=== PATIENT | female | born 1940 | race Caucasian/White ===

== ENCOUNTER 2020-08-08 15:51 | Emergency (ER) | payer OTHER ==
[~2020-08-08] VITALS: Ht 170.2 cm; Wt 48.1 kg
[2020-08-08 17:39] LABS: HEMATOCRIT 33.1 % (37.0-47.0); HEMOGLOBIN 11.1 gm/dL (12.0-15.0); MCH 31.4 pg (26.0-34.0); MCHC 33.6 g/dL (28.0-37.0); MCV 93.5 fL (80.0-100.0); RBC 3.54 mil/uL (4.20-5.00); RDW 13.9 % (10.5-14.5); WBC 6.4 thou/uL (4.0-11.0)
[2020-08-08 17:45] LABS: CREATININE 0.8 mg/dL (0.6-1.0); POTASSIUM 3.5 mmol/L (3.5-5.1)
[2020-08-08 17:52] LABS: ALBUMIN 3.2 g/dL (3.4-5.0); TOTAL BILIRUBIN 0.4 mg/dL (0.2-1.0); TOTAL PROTEIN 5.6 g/dL (6.4-8.2)
[2020-08-08] MEDS ORDERED: TYLENOL325 M1 PO (18:22)
[2020-08-08] MEDS ORDERED: CALCIUM CARBON500 MG PO (18:22)
[2020-08-08] MEDS ORDERED: DEPAKOTE125 MG PO (18:23)
[2020-08-08] MEDS ORDERED: DULCOLAX STOOL100 M1 PO (18:23)
[2020-08-08] MEDS ORDERED: MELOXICAM15 MG PO (18:24)
[2020-08-08] MEDS ORDERED: FLUOXETINE HCL40 MG PO (18:24)
[2020-08-08] MEDS ORDERED: LORAZEPAM 0.50.5 MG PO (18:24)
[2020-08-08] MEDS ORDERED: OMEPRAZOLE20 M2 PO (18:25)
[2020-08-08] MEDS ORDERED: PRAVASTATIN SOD40 MG PO (18:25)
[2020-08-08] MEDS ORDERED: SUPER THERAVIT1 EACH PO (18:25)
[2020-08-08] MEDS ORDERED: RESTASIS1 EACH OPHTHALMIC (18:26)
[2020-08-08 19:03] LABS: URINE BILIRUBIN NEGATIVE (Negative); URINE BLOOD NEGATIVE (Negative); URINE CLARITY CLEAR; URINE COLOR YELLOW; URINE GLUCOSE-RANDOM* NEGATIVE (Negative); URINE KETONES 2+ (Negative); URINE LEUKOCYTES-REFLEX NEGATIVE (Negative); URINE NITRITE-REFLEX NEGATIVE (Negative); URINE PROTEIN (DIPSTICK) NEGATIVE (Negative)
[2020-08-08 19:10] LABS: AMP/METHAMP Negative (Negative); BARBITURATES Negative (Negative); BENZODIAZEPINES Negative (Negative); COCAINE Negative (Negative); METHADONE Negative (Negative); OPIATES Negative (Negative); PCP Negative (Negative)
[2020-08-08 19:40] VITALS: BP 141/54
== END 2020-08-08 19:45 ==
LOC: ER 15:51
PROVIDERS: Nurse Practitioner Family
DX: R45.851 Suicidal ideations (principal); Z20.822 Contact with and (suspected) exposure to COVID-19; F03.90 Unspecified dementia, unspecified severity, without behavioral disturbance, psychotic disturbance, mood disturbance, and anxiety; Z79.899 Other long term (current) drug therapy; Z88.5 Allergy status to narcotic agent

== ENCOUNTER 2020-08-08 17:50 | Inpatient (IN) | payer OTHER ==
[~2020-08-08] VITALS: Ht 165.1 cm; Wt 40.0 kg
[2020-08-08] MEDS ORDERED: CALCIUM CARBON500 MG PO (18:22)
[2020-08-08] MEDS ORDERED: TYLENOL325 M1 PO (18:22)
[2020-08-08] MEDS ORDERED: DULCOLAX STOOL100 M1 PO (18:23)
[2020-08-08] MEDS ORDERED: DEPAKOTE125 MG PO (18:23)
[2020-08-08] MEDS ORDERED: MELOXICAM15 MG PO (18:24)
[2020-08-08] MEDS ORDERED: FLUOXETINE HCL40 MG PO (18:24)
[2020-08-08] MEDS ORDERED: LORAZEPAM 0.50.5 MG PO (18:24)
[2020-08-08] MEDS ORDERED: PRAVASTATIN SOD40 MG PO (18:25)
[2020-08-08] MEDS ORDERED: OMEPRAZOLE20 M2 PO (18:25)
[2020-08-08] MEDS ORDERED: SUPER THERAVIT1 EACH PO (18:25)
[2020-08-08] MEDS ORDERED: RESTASIS1 EACH OPHTHALMIC (18:26)
[2020-08-08 19:55] VITALS: BP 141/54
--- NOTE | 2020-08-09 01:56 | NUR ---
ADMISSION NOTE: REPORT OBTAINED FROM JODI CASAREZ IN ED. PT ARRIVED TO UNIT AT 1954 VIA WHEEL CHAIR ACCOMPANIED BY BOAT CAMP OPERATOR. THIS RN GREETED PT AND ESCORTED HER TO HER ROOM. SUZY APPEARS WELL GROOMED AND IS DRESSED APPROPRIATE. PT PRESENTS WITH A ANXIOUS AFFECT AND HER THOUGHTS ARE DISORGANIZED. SHE IS ALERT TO PERSON AND PLACE ONLY. PT VERBALIZED THAT SHE IS COLD AND BLANKETS WERE PROVIDED. PHYSICAL ASSESSMENT COMPLETED BY CHARGE NURSE WITH THE FOLOWING FINDINGS VITAL SIGNS; BP 141/54, P-59, R-16, O2-99%, AND TEMP 98.1 ORAL, LUNG SOUNDS CLEAR, HEART S1 S2 REGULAR, ABDOMEN SOFT NON TENDER WITH ACTIVE BOWEL SOUNDS. NO WOUNDS NOTED. PT ORIENTED TO ROOM AND UNIT. EDUCATION PROVIDED ON FALL PREACAUTIONS AND UNITE RULES. PT DENIED ANY THOUGHTS OF SELF HARM OR HARMING OTHERS. SHE STATED "I DO NOT WNAT TO AND I NEVER WOULD SAY ANYTHING LIKE THAT". PER REFFERING FACILITY, SUZY, STATED THAT SHE WANTED TO LAY DOWN AND TRAFFIC AND . PATIENT HAS LEFT ARM RESTRICTION. SHE HAS A HISTORY OF BREAST CANCER AND A RECENT FEMUR FRACTURE IN MARCH OF 2020. PATIENT HAS DPOA SILAS LILLY. DPOA CONTACTED AND CONSENTS WERE OBTAINED FOR TREATMENT. SPOKE WITH PROPELLER ENGINEER DOCTOR AND RECEIVED ADMIT ORDERS. H&P CONSULT ORDERED AND COMPLETED.
[2020-08-09 05:48] LABS: CHOLESTEROL 175 mg/dL (<200); HDL CHOLESTEROL 82 mg/dL (>40); LDL CHOLESTEROL 76 mg/dL (<100); TC:HDL 2.1 Ratio (Not establshd); TRIGLYCERIDE 89 mg/dL (<150); VLDL 18 mg/dL (<40)
[2020-08-09 05:49] LABS: SERUM ASSESSMENT Clear
[2020-08-09 09:41] VITALS: BP 124/62
[2020-08-09 13:13] VITALS: BP 124/62
[2020-08-09 18:49] VITALS: BP 128/59
--- NOTE | 2020-08-09 19:19 | NUR ---
Assumed pt care at 0700. pt is oriented to self. Took meds whole, no difficulty noted. Assessments completed, vss. No sign of acute distress noted upon assessments. pt was very anxious at AM, but redirectable. Denies si/hi. denies pain. ambulates with a walker. pt best friend visited pt this shift. Dedra KEYES CALLED TO GET UPDATE ON PT. pt request to speak with Dedra every 10 minutes. when pt is redirected, pt get irritable. At [address] pt was extremely [address] Rosenbaum notified. order of 1MG Ativan PO was obtained AND administered at 1828. At this time pt is sitting in the day room. will continue to monitor.
[2020-08-09 23:03] VITALS: BP 128/59
[2020-08-10 03:06] LABS: GLYCOHEMOGLOBIN (HGB A1C) 5.5 % (4.8-5.6)
--- NOTE | 2020-08-10 03:57 | NUR ---
Assumed care on 08/09/20 @ 19:15, seated in the day room in a lokesh chair. Cooperated with assessment, however stands up repeatedly and has to be redirected to sit for the assessment. Denies depression, but then followed up the denial with the words darkness, and feeling. Anxiety, says, no not for quite a while. Denies SI/HI. HRRR, Lungs sounds shallow, ABD N x4q. Reports a BM today. A&Ox1 to self only. Very shaky and unstable when standing. Kenney score of 55. Retired to bed @ HS and got up at about 0300 to toilet via the BSC. Will continue to monitor as per unit protocol for safety and comfort.
[2020-08-10 08:57] VITALS: BP 153/82
--- NOTE | 2020-08-10 15:53 | NUR ---
Assumed pt care at 0700. pt is oriented to self. Assessments completed, vss. Pt denies si/hi, denies pain. Took meds whole, no difficulty noted. AMbulates with a walker. calm and co-operative with care. Dedra visited pt. pt was anxious but redirectable. Med administered as ordered. pt is shaky when when she stands up. pt constantly wanders the unit. At this time pt is in the day room relaxing. Will continue to monitor.
[2020-08-10 19:02] VITALS: BP 95/70
[2020-08-10 20:00] VITALS: BP 95/70
--- NOTE | 2020-08-10 23:00 | NUR ---
PATIENT HAS BEEN IN BED SLEEPING SINCE I CAME ON SHIFT AT 1900. SHE DID AWAKE IN A DROWSY STATE WHEN I CAME IN TO ASSESS HER AND GIVE HER HER HS MEDS. SHE TOOK HER HS MEDS WHOLE WITH WATER. PATIENT DENIES PAIN, NO SI/HI. NO SIGN OF AVH. PATIENT IS A/0X1. VSS. PHYSICAL ASSESSMENT WNL. PATIENT WENT BACK TO SLEEP. HER HANDS WERE SHAKING WHEN I GAVE HER HER MEDS AND SHE EXPLAINED THAT SHE WAS COLD. NO FEVER. ADDITIONAL BLANKETS WERE PLACED ON HER FOR WARMTH. BED IN LOW POSITION AND BED ALARM IS ON. BATHROOM LIGHT ON AND ROUTINE ROUNDS TO ASSESS SAFETY AND STATUS OF PATIENT. CONTINUING TO MONITOR.
[2020-08-11 09:44] VITALS: BP 123/57
[2020-08-11 09:45] VITALS: BP 123/57
--- NOTE | 2020-08-11 10:07 | H ---
[facility] [place] [address] HISTORY AND PHYSICAL Name: SUZY LAWRENCE Room #: 519A-A ADM IN M.R.#: [id number] Admission: 08/08/20 Attend Phys: Carlos Rosenbaum DO Discharge: Date of : 40 Report #: [id number] THIS REPORT FOR: cc: Jean Campos MD, Ralph R. MD Kerstein,Carlos Stack DO ~ DOC #: [id number] CARLOS Rosenbaum DO DATE OF SERVICE: 08/09/2020 ATTENDING PSYCHIATRIST: Carlos Rosenbaum DO ANALYSIS OR RESEARCH SAFETY INSPECTOR: Hussain Bolivar NP, and Varghese Pino M.D. and his hospitalist team. SOURCES OF INFORMATION: I believe her name is Dedra Radford, who is the patient's DPOA, but is not listed on the contact information in [facility], chart review, my own interview with the patient in the ER, and on the [facility]. REASON FOR ADMISSION: Suicidal gesture. HISTORY OF PRESENT ILLNESS: This is an 80-year-old female sent from [facility] for concerns of suicidal ideation and behavior today. The patient's DPOA arrived during her ER visit and filled in some of the pieces. The patient has been placed there about a year ago. She has an Alzheimer dementia. The report from the ED was that there has been a lot of time she sat on the floor, was crying and told staff she wanted to kill herself and run out into traffic and get hit by a car. In the Emergency Department, she admitted to me that she said this, but would not actually do it. She was given some Ativan that improved things prior to arrival in the ER. She denied recent depression or sadness, so I do not think this is true, frpm talking to [facility]. She thought it was 1990. Denied headache, visual changes, chest pain, shortness of breath, abdominal pain, nausea, vomiting, diarrhea, constipation, or urinary symptoms. MEDICATIONS AT NURSING FACILITY: calcium carbonate 1 tab p.o. b.i.d., Depakote sodium 500 mg p.o. b.i.d., docusate 100 mg p.o. b.i.d., fluoxetine 20 mg p.o. at bedtime, lorazepam as noted is 0.5 mg p.o. b.i.d., I thought it was actually 0.25 mg p.o. b.i.d., meloxicam daily, multivitamin, omeprazole, pravastatin, cyclosporine ophthalmic drops. ALLERGIES: CODEINE. REVIEW OF SYSTEMS: Due to her dementia, could not get reliable review of systems. Weight 48.08 kilos, BMI low at 16.2. [address] [address] HISTORY AND PHYSICAL Name: CAMILA LAWRENCEWinnie Dalton Room #: 519A-A ADM IN M.R.#: [id number] Admission: 08/08/20 Attend Phys: Carlos Rosenbaum, DO Discharge: Date of : 40 Report #: [id number] LABORATORY DATA: From the ER on the CBC, H and H 11.1/33.1, white count 6.4, platelet count 213,000. Electrolytes: Sodium 140, potassium 3.5, chloride 103, bicarbonate 29, anion gap 8, BUN 16, creatinine 0.8, estimated GFR 69, glucose 99, calcium 9.0, total bilirubin 0.4, AST 18, ALT 15, alkaline phosphatase 58, total protein 5.6, albumin 3.2. Triglycerides 89. Cholesterol 175, LDL 76, HDL 82. TSH 1.251. Urinalysis showed 2+ ketones, 4.0 urobilinogen, otherwise normal. Urine drug screen was negative including for marijuana. COVID-19 Thao test was negative. PHYSICAL EXAMINATION: VITAL SIGNS: Today, temperature 36.9, pulse 60, respirations 18, BP 124/62. GENERAL: The patient is using a walker minimally to ambulate, unkempt, slightly kyphotic station. MENTAL STATUS EXAMINATION: This is a well-developed, thin, undernourished-appearing female. Attention limited. Concentration limited. Speech, normal rate. Thought process, linear and hypervigilant. Thought content, focused on being discharged, not beingon the unit. mood/affect- restricted, depressed, irritable, congruent Some psychomotor agitation, psychomotor retardation. Denied SI or HI. Denies auditory, visual, or tactile hallucinations. Memory not formally tested. Insight limited. Judgment limited. Fund of knowledge, greater than average. MEDS IN THE HOSPITAL: Atorvastatin 20 mg p.o. at bedtime, multivitamin daily, meloxicam 15 mg p.o. daily, lorazepam 0.25 mg twice a day, docusate 100 mg p.o. b.i.d., Depakote 500 mg p.o. b.i.d., calcium carbonate 1000 mg p.o. daily, Protonix 40 mg p.o. daily. Otherwise, house PRNs. FORMULATION: An 80-year-old female sent out for suicidal gesture, suicidal ideation, increasing difficulty the last few weeks at her memory care facility. DIAGNOSES: At this time, major neurocognitive disorder, likely due to Alzheimer's disease with behavioral disturbance, unspecified depression. Additional morbidities include arthritis, hyperlipidemia. PLAN: The patient is admitted to geriatric psychiatry. Evaluate, stabilize, and obtain collateral. ____ DPOA today at the moment. She has been quite anxious today, and I think she is going to need an antipsychotic, likely will start olanzapine. STRENGTHS: Insured, has placement, support. WEAKNESSES: Advancing age, neurodegenerative disease. [facility] [address] [place] [address] HISTORY AND PHYSICAL Name: SUZY LAWRENCE Room #: 519A-A ADM IN [facility]#: [id number] Admission: 08/08/20 Attend Phys: Carlos Rosenbaum DO Discharge: Date of : 40 Report #: [id number] DO JUMANA Parsons/BRIANNA/SHERI <ELECTRONICALLY SIGNED> By: Carlos Rosenbaum DO 08/11/20 1007 [id number] Carlos Rosenbaum DO /nt
--- NOTE | 2020-08-11 10:57 | NUR ---
1050 RESUMMED CARE FROM OVERNNIGHT SHIFT THIS AM, PATIENT IN DAY ROOM WALKING AROUND ROOM AND HALLS. PATIENT ALERT ORIENTED TO SELF ONLY PATIENT HAS CONFUSION AND IS FORGETFUL. PATIENT ATE BREAKFAST TOOK MEDICATION WITHOUT INCIDENCE. PATIENT DENIES SI/HI/AH/VH AT PRESENT PATIENTS ABDOMEN SOFT BOWEL SOUNDS PRESENT. PATIENTS LUNGS CLEAR PATIENT DID SIT AN PARTICIPATED IN GROUP. PATIENT OFTEN COMES UP TO NURSES STATION ASKING ABOUT CALLING HER FRIENDS. PATIENT HAS NOT DISPLAYED ANY BEHAVIORS SHE IS JUST CONFUSED WILL CONTINUE TO MONITOR FOR SAFETY AND BEHAVIORS.
--- NOTE | 2020-08-11 15:25 | NUR ---
This telegraphic typewriter installer assisted TIRE CARE MANAGER who was assisting Nimo in preparing to take a shower. Nimo had become resistive to the idea of taking a shower and was refusing altogether. This pt had a visitor during visitation who requested that Nimo be bathed and dressed in a new set of clothes as she had not changed since her admission 3 days ago. Nimo stated, "I will not do it." despite staff explaining to her that this was at the request of her friend Tati and her DPOA Dedra. Professor Of German called Dedra who spoke to Nimo, explaining to her what was going on. Nimo continued to decline showering. WALI Colmenares is planning to visit pt tomorrow during AM visiting hours and asked that pt be offered a shower then to see if it will help with pt comfort level.
[2020-08-11 19:46] VITALS: BP 118/60
--- NOTE | 2020-08-12 01:57 | NUR ---
Pt assessment performed by this Nurse at approx 2100 hrs. Upon assessment patient was in bed. Patient alert/sleepy. Pt oriented to self only at the time of assessment.She was unable to state her birthdate, location or president. Patient had good eye contact and was very pleasant and cooperative. Patient compliant with unclaimed property manager and takes her meds whole with water. She did ask what each pill was for and this Nurse educated pt regarding medications. Upon physical assessment lungs are clear, no sob but she did have irregular heart sounds approx every 3rd -4th beat. Pt denied any pain, depression, anxiety, SI/HI. Patient was smiling and friendly throughout assessment. She stated she had a BM yesterday 08/10/20. Denies any urinary or bowel issues. She does wear a brief and has a bedside commode in her room. At approx 0145 this am (08/12/20) pt got out of bed and was trying to get to her bathroom without using her walker or bsc. This Nurse and tech redirected pt to bsc where she sat for quite awhile but was unable to urinate. She stated that she will awake with the urgency to urinate but when she gets on the toilet she is unable to void most of the time. Patient got back in bed and stated she might try again later. Will continue to monitor and follow plan of care. Q 12 min safety checks per protocol.
[2020-08-12 09:28] VITALS: BP 115/45
--- NOTE | 2020-08-12 17:42 | NUR ---
SALVADOR was able to speak with Pt's DPOA, Dedra Muniz [phone], to inform that Pt showered today. Dedra was happy to know this. Dedra also reported that the Pt's mood was improving. Also Pt was smiling and conversational during Dedra's visit on the unit today. SALVADOR will continue to follow
--- NOTE | 2020-08-12 19:24 | NUR ---
0700 ASSUMED CARE OF PATIENT, PATIENT IN BED ASLEEP AT THAT TIME. ALARM TO BED SOUNDS, TOOL AND DIE DESIGNER TO ROOM WITH PATIENT HEADED TO BR WITHOUT WALKER. PATIENT EDUCATED ON USE OF WALKER TO PREVENT FALLS. PATIENT TO BE VOIDED AND MED BM. MEDICATION TAKEN WHOLE WITHOUT DIFFICULTY. PRESENT IN AM GROUP. BLADDER SCAN COMPLETED AT 10AM WITH 147ML NOTED. NO C/O PAIN AMB SOFT AND FLAT. 1750 PATIENT CONFUSED STATING "I WAS SUPOSE TO GO HOME TODAY". PATIENT UPSET. TOOL AND DIE DESIGNER AMB TO ROOM WITH PATIENT, PATIENT SITS ON SIDE OF BED GRABBING SIDES OF HEAD RAISING HER VOICE STATING "I AM SUPOSE TO GO TODAY". PATIENT LAYS IN BED TO REST.
[2020-08-12 20:00] VITALS: BP 121/47
--- NOTE | 2020-08-13 02:32 | NUR ---
Initial assessment performed by this Nurse at approx 2030 hrs on 08/12/20. Patient was observed sleeping in her bed. This Nurse woke patient up for physical assessment. No changes noted from previous shift. Patient drowsy, alert and oriented to self. Patient smiling and denied any pain, depression, anxiety, SI/HI, hallucinations. Patient continues to get out of bed quickly and attempts to ambulate toward her bathroom without her walker. Each time patient escorted to BSC with her walker by staff. Patient continually reminded to use walker and BSC. Patient will state, " I'm so sorry." Staff has explained to patient no need to apologize and that we are just trying to keep her safe. Patient did not want hs snack. She did void small amt of urine x 1 this shift with BSC. Patient appears weak when standing and does not have a steady gait. Will continue to monitor and follow plan of care. Q 12 min safety checks per protocol.
[2020-08-13 08:39] VITALS: BP 131/63
--- NOTE | 2020-08-13 17:46 | NUR ---
0700 ASSUMED CARE OF PATIENT, PATIENT IN BED AT THAT TIME. PATIENT IN WC AND OUT TO DAYROOM FOR BREAKFAST. AWAKE AND ALERT, FEEDS SELF. MEDICATION TAKEN WHOLE WITHOUT DIFFICULTY. PRESENT IN GROUP THIS AM. PATIENT TRANSFERED TO [facility], RESTING WITH EYES CLOSED. VISITOR HERE, PATIENT SLEEPING AT THAT TIME. AFTER LUNCH PATIENT ASKS AUTOMATIC WASHER MECHANIC ABOUT BEING DC'D TOMORROW. PATIENT UPSET THAT TOMORROW IS SATURDAY AND NOT GOING HOME. PATIENT PLACES HEAD IN LAP AND STARTS SHAKING WITH ANGER. PATIENT DENIES ANXIETY STATES "I AM JUST UPSET AND WANT TO GO TO MY HOME". AMB WITH WALKER SLOW AND STEADY. DENIES PAIN, LS CLEAR, BS ACTIVE. DENIES SI/HI. PATIENT ON PHONE WITH FRIEND AT THIS TIME.
[2020-08-13 21:00] VITALS: BP 135/79
--- NOTE | 2020-08-14 05:51 | NUR ---
ASSUMED CARE OF PATIENT AT APPROX 1915 HRS ON 08/13/20. PATIENT ALERT/DROWSY. PATIENT DENIES ANY PAIN, DEPRESSION, SI/HI, ANXIETY, HALLUCINATIONS. SHE DOES STATE SHE IS SAD BECAUSE SHE WANTS TO GO HOME AND SHE WANTS HER FRIEND SILAS TO COME AND GET HER. PT DID HAVE HER PM SNACK AND DRANK 8OZ OF WATER WITH SNACK. SHE AMBULATES WITH WALKER AND HAS SLIGHTLY UNSTEADY GAIT. SHE DOES NEED ASSIST WITH TOILETING. PT'S PANTS AND UNDERWEAR WASHED THIS SHIFT AND PLACED BACK IN HER ROOM. PATIENT HAS HAD NO COMPLAINTS SINCE RETIRING TO BED. WILL CONTINUE TO MONITOR AND FOLLOW PLAN OF CARE. Q 12 MIN SAFETY CHECKS PER PROTOCOL.
[2020-08-14 08:54] VITALS: BP 144/61
--- NOTE | 2020-08-14 13:00 | NUR ---
Updates faxed to [facility]
--- NOTE | 2020-08-14 15:10 | NUR ---
0700 ASSUMED CARE OF PATIENT, PATIENT ASLEEP IN BED AT THAT TIME. PATIENT DOES NOT WANT TO GET OUT OF BED FOR BREAKFAST STATES "I WANT TO SLEEP, IM TIRED". 0945 PATIENT OUT OF BED AMB WITH WALKER. MEDICATION TAKEN WHOLE WITHOUT DIFFICULTY. PATIENT FEEDS SELF EATING WELL. DR OTOOLE HERE TO SEE PATIENT ORDERS RECIEVED. NO C/O PAIN, DENIES SI/HI. ASKING WHEN SHE WILL GO HOME. CALM AND COOPERATIVE. BACK TO BED TO REST
[2020-08-14 19:22] VITALS: BP 122/71
[2020-08-14 20:20] VITALS: BP 122/71
--- NOTE | 2020-08-15 00:18 | NUR ---
PATIENT WAS UP WITH WALKER THIS EVENING. SHE SAT IN DINING ROOM AND HAD HS SNACK BEFORE GOING BACK TO BED. SHE HAS BEEN PLEASANT AND COOPERATIVE. SHE APPEARS SAD BUT NO EXIT SEEKING OR REQUESTS TO LEAVE. SHE IS WEAK AND UNSTEADY GAIT WITH WALKER AT TIMES. PATIENT IS A/0X1. SHE IS CONTINENT. PATIENT DENIES PAIN. NO INDICATIONS OF SI/HI/AVH. PATIENT SAT UP IN BED AND TOOK HER HS MEDS WHOLE WITH WATER. SHE HAS BEEN UP X 1 SO FAR TONIGHT THINKING IT WAS TIME TO GET UP AND GET DRESSED. REORIENTED HER ON THE TIME AND ASSISTED HER TO THE [facility] WHERE SHE DID VOID CLEAR YELLOW URINE. PATIENT BACK IN BED. BED LOCKED AND IN LOW POSITION AND BED ALARM IS ON. ROUTINE ROUNDS TO ASSESS SAFETY AND STATUS OF PATIENT.
[2020-08-15 08:49] VITALS: BP 133/64
[2020-08-15 09:44] VITALS: BP 133/64
--- NOTE | 2020-08-15 13:01 | NUR ---
1235 RESUMMED CARE FROM OVERNIGHT SHIFT THIS AM, PATIENT IN ROOM LYING QUIET. PATIENT CAME TO DAY ROOM ATE BREAKFAST TOOK MEDICATION WITHOUT INCIDENCE. PATIENT ALERT ORIENTED TO SELF ONLY PATIENT PATIENT UNABLE TO TELL ME ABOUT SI/HI/AH/VH AT PRESENT. PATIENTS ABDOMEN SOFT BOWEL SOUNDS PRESENT PATIENTS LUNGS CLEAR. PATIENT ALERT TO SELF ONLY PATIENTS AFFECT FLAT PATIENT HAS UNSTEADY GAIT AT TIMES. I PUT PATIENT IN WC FOR SAFETY PATIENT ASKED IF SHE GO BACK TO BED TO REST. WILL CONTINUE TO MONITOR PATIENT FOR SAFETY AND BEHAVIORS.
--- NOTE | 2020-08-15 14:41 | NUR ---
RT progress Note- Nimo has been present in many recreation therapy groups since her admission, however her active engagement is limited d/t attention and cognition. Nimo often believes that she needs to be somewhere and will not remain engaged. Othertimes she is napping. When awake for conversation, Nimo brightens when speaking about her friends. She also enjoyed visiting with a therapy dog during this review period. RECEIVING CHECKER will continue to encourage participation.
[2020-08-15 19:11] VITALS: BP 91/63
[2020-08-15 21:00] VITALS: BP 91/63
--- NOTE | 2020-08-16 00:23 | NUR ---
[facility] WAS RESUMED AT 1900. SHE IS CALM AND ALERT.ABLE TO VERBALIZE SOME NEEDS. SHE IS INCONTINET OF BOWEL AND BLADDER. ASSISTED WITH DESTIN- CARE. SHE DENIES ANY DISCOMFORT, AVH/SI/ HI. SHE IS RESTING IN BED NOW. SHE IS MONIOTRED Q12 MINS. SHE TOOK HER MEDS WHOLE AND DRANK WATER AND ATE SOME SNACKS.BED IS LOW AND LOCKED. LUNGS ARE CLEAR ON AUSCULTAION, ABODMEN IS FLAT , NONE TENDER. SHE TOOK HER MEDS WHOLE.CONTINUE CARE AND MONITOR.
[2020-08-16 09:13] VITALS: BP 140/56
--- NOTE | 2020-08-16 10:47 | NUR ---
Received awake on the dining meléndez. On room air. Vital signs stable. On regular diet- tolerating well; no nausea, no vomiting and no abdomnal pain noted; assisted in eating and drinking; encouraged in taking supplements. Due medications given as prescribed, able to swallow meds w/o difficulty. Continent of bowel and bladder, checked frequently and offered toileting as well. No IV noted. Falls bundle in place, using walker and can be unsteady at times. No signs and complains od chest pain, crushing sensation and heaviness. No complains and signs of pain made during assessment. Assisted in ADLs. No verbalizations of HI/SI; no verbal, auditory and tactile hallucinations noted. Pt tearful this AM, re-assured and re-oriented. With L limb alert- hx of breast Ca. To continue monitoring patient. Pt seen and examined by OT- patient reporting to have diarrhea- Dr Pino informed, a/w orders.
[2020-08-16 19:34] VITALS: BP 94/52
--- NOTE | 2020-08-16 20:11 | NUR ---
Upon assessment at 1915 hrs patient observed in day room in [facility] reclined and tearful. Patient trying to get out of chair. Patient verbalizing that she wanted to go home and crying. This Nurse removed patient from the day room. She was able to ambulate with walker to her room and place herself on the toilet. Patient toileted herself without assist, pulled up her brief and pants then ambulated to her bed where she chose to lay down. Patient continues to cry stating she just wants to go home. Patient consoled and encouraged to relax in her room for a bit. Patient was asleep within 5 minutes of laying in her bed. Physical assessment was unremarkable. This Nurse did not ask patient to rate depression, anxiety, etc. She was too emotional at the time. Will continue to monitor and follow plan of care. Will administer medications after patient has had some time to calm down and rest. Q 12 min safety checks per protocol.
--- NOTE | 2020-08-16 22:44 | NUR ---
PT SLEEPING AT THIS TIME. WILL CONTINUE TO MONITOR
--- NOTE | 2020-08-17 06:33 | NUR ---
Patient slept through the night and is still sleeping at this time. A.M. med will be given by oncoming RN when patient awakes. No issues through the night.
[2020-08-17 09:02] VITALS: BP 121/50
--- NOTE | 2020-08-17 12:45 | NUR ---
PATIENT CARE ASSUMED AT 0700 - APPROACHED AND WAS IN BED ON ARRIVAL WHEN ROUNDING. PATIENT PLEASANT - ACKNOWLEDGED SAID SUBSTATION SUPERINTENDENT WITH A SMILE. PATIENT BECOMES TEARFUL PERIODICALLY. AMBULATES WITH WALKER - NEEDING TO BE REMINDED OFTEN DUE TO HER UNSTEADINESS. ALERT TO SELF. APPETITE FAIR - CONSUMING OVER 50% FOR BREAKFAST AND LUNCH. NO PAIN WHEN ASSESSED. COOPERATIVE WITH CARES AND REDIRECTION. NAPPED AFTER LUNCH. HEART RATE STRONG AND STEADY. LUNGS CLEAR ON AUSCULTATION. HAD BOWEL MOVEMENT YESTERDAY. COMPLIANT WITH MEDICATIONS - EASILY TAKEN WITH THIN LIQUIDS. WILL CONTINUE TO MONITOR PATIENT FOR SAFETY OR CONCERNS AND ADDRESS ACCORDINGLY.
[2020-08-17 19:58] VITALS: BP 107/57
--- NOTE | 2020-08-18 00:04 | NUR ---
UPON ASSESSMENT PT OBSERVED SITTING IN CHAIR IN DAY ROOM. SHE WAS ALERT/ORIENTED TO SELF. PT SMILED AT THIS NURSE BUT STATED SHE DID NOT REMEMBER ME FROM THE PREVIOUS NIGHT. PT IS OCCASSIONALLY SOCIAL WITH PEERS AND WATCHED SOME TV TONIGHT. SHE AMBULATED WITH WALKER TO HER ROOM AFTER HS SNACK. PT IS ABLE TO TOILET HERSELF BUT LEGS ARE A BIT WEAKER THIS EVENING THAN USUAL. DAY SHIFT STAFF STATED PT DID A LOT OF WALKING TODAY. PATIENT COMPLIANT WITH MEDS AND CARE THIS SHIFT. PT RETIRED TO HER BED AND WILL CONTINUE TO BE MONITORED. Q 12 SAFETY CHECKS PER PROTOCOL.
--- NOTE | 2020-08-18 05:47 | NUR ---
PT HAS TRIED TO GET OUT OF BED MULTIPLE TIMES THIS SHIFT. PT RESTLESS AND CONFUSED.
[2020-08-18 08:40] VITALS: BP 140/53
[2020-08-18 09:58] VITALS: BP 140/53
--- NOTE | 2020-08-18 13:01 | NUR ---
1255 RESUMMED CARE FROM OVERNIGHT SHIFT THIS AM, PATIENT IN DAY ROOM SITTING QUIETLY. PATIENT ALERT ORIENTED TO SELF ONLY PATIENT ATE BREAKFAST TOOK MEDICATION WITHOUT INCIDENCE. PATIENT DENIES SI/HI/AH/VH AT PRESENT PATIENT IS WALKING AROUND THE UNIT WITH A WALKER. PATIENT PARTICIPATES IN GROUPS QUIET CALM. WILL CONTINUE TO MONITOR PATIENT FOR SAFETY AND BEHAVIORS.
[2020-08-18 19:27] VITALS: BP 122/61
--- NOTE | 2020-08-19 05:13 | NUR ---
08-18-20 CARE TRANSFERRED 1900 OBSERVED PT WALKING WITH WALKER AND CARE STAFF ASSISTING. LATER PT AAOX1, VSS, RR EVEN AND NONLABORED ON RA. PT DENIES PAIN AND SI/HI. PT PRESENTS IRRITABLE, BUT REMAINED COOPERATIVE. DURING MEDICATION ADMIN PT BECOME AGITATED AND WANTING TO LEAVE, FOR HER BROTHER WAS [place] THE [place] AND SHE NEED TO PICKUP HIM UP, PT REORIENATED TO BEING AT THE HOSPITAL AND PT THEN STARTING HAVING FLIGHT OF IDEAS ABOUT NEEDING TO LEAVE, PT WAS REASSURED AND PT TOOK EVENING MEDICATION, LATER NOTED PT HAD CALMED, BUT WAS RESTLESS. LATER PT WAS ASSISTED TO BED, BUT PT BECAME AGITATED AND SWINING AT STAFF, AND PT AGITATATION INCREASED. 08-19-20 0045 Bradley ROCHE NP WAS CONSULTED AND ORDERS FOR GEODON 15MG IM WITH SECURITY TEAM RESTRIANT ORDERS RECEIVED, AND ORDERS ADMIN AT 0054 WITH SECURITY TEAM ASSISTANCE. 0115 PT PRESENTED CALM, AND 0145 PT WAS RESTING WITH EYES CLOSED. 0515 PT WAS ASSISTED BY EMAIL SPECIALIST STAFF, AND PT APPEARS TO BE RESTLESS AND EXIT SEEKING, STATING "I need to leave". ZERO S/S OF ACUTE DISTRESS, PT WILL CONTINUE TO BE MONITOR PER [facility] PROTOCOL.
[2020-08-19 09:46] VITALS: BP 139/65; BP 141/50
--- NOTE | 2020-08-19 11:42 | NUR ---
Alert and orientated to name only. Impulsive at times wanting to get out of gerichair and ambulate, gait slightly unsteady. Resistant to redirection this AM, better late AM after meds. Denies SI/HI. Confused speech, no speech/behavior suggestive of SI/HI. Breath sounds clear. Reg HR auscultated. Color pink with brisk capillary refill and palpable peripheral pulses. Brief dry. Active bowel sounds over soft, slightly rounded abdomen. Resistant to swallowing meds this AM, depakote and colace changed to liquid, rest of meds crushed and given with apple sauce. Took with verbal encouragement. Drank 100% of ensure when given in small amts. Sitting in day room without s/o distress.
[2020-08-19 19:44] VITALS: BP 152/61
[2020-08-20 03:16] VITALS: BP 152/61
--- NOTE | 2020-08-20 03:30 | NUR ---
08/19/20 assumed care from day shift nurse at 1900, pt is alert to self, confused, does not know where she is and continues to voice wanting to leave, impulsive, pt did eat a snack, Denies SI/HI/AH/VH but her speech is rambled, pt took her medications with yogurt, did not take the colace. Pt requires constant supervision because she attempts to get up without assistance. Will continue to monitor.
[2020-08-20 07:29] VITALS: BP 154/47
[2020-08-20 19:55] VITALS: BP 127/56
[2020-08-21 01:42] VITALS: BP 127/56
--- NOTE | 2020-08-21 02:17 | NUR ---
08/20/20- Assumed pt care from day shift nurse at 1900, Alert to self, in chair with close supervision by staff, did not sleep last night finally slept for one hour on 08/19/20 and still is not sleeping tonight. pt at baseline is pleasantly confused but now pt is easily agitated, remains impulsive which is baseline for her but she is typically redirectable but for the past two nights she has not been. Pt will notify staff when she need to use the bathroom, she has episodes of incontinence, pt took her medication with pudding but refused her colace. Sean ADAME/MARGIE/AH/VH, will continue to monitor throughout this shift
[2020-08-21 08:47] VITALS: BP 156/50
--- NOTE | 2020-08-21 11:31 | NUR ---
NOTED TO BE RESTLESS AND AGITATED ON INITIAL APPROACH THIS AM-SITTING IN RECLINER UPRIGHT IN DAYROOM TAKING CLOTHES OFF-HAD REMOVED T-SHIRT AND WAS ATTEMPTING TO PULL DOWN PANTS-BECAME COMBATIVEWITH BUSINESS INTELLIGENCE CONSULTANT WHO WAS ATTEMPTING TO PUT SHIRT BACK ON OR COVER HER WITH BLANKET-TAKEN TO BATHROOM TO SEE IF WAS RESTLESS D/T NEED TO VOID-INCREASED PHYSICALLY COMBATIVE BEHAVIOR DURING TOILETING REQUIRING 3 STAFF TO TRANSER TO TOILET-BRIEF DRY AND DID NOT VOID WHILE ON TOILET-NO BLADDER DISTENSION NOTED. ZYPREXA 5MGPO PRN GIVEN ALONG WITH AM MEDICATIONS. MEDS CRUSHED IN PUDDING D/T REFUSAL TO TAKE PO. CONVERSATION RAMBLING-INCOHERENT. DENIES C/O PAIN. LUNGS CLEAR-VS STABLE-WILL CONTINUE TO MONITOR
[2020-08-21 18:23] LABS: URINE BILIRUBIN NEGATIVE (Negative); URINE BLOOD 3+ (Negative); URINE CLARITY CLOUDY; URINE COLOR YELLOW; URINE GLUCOSE-RANDOM* NEGATIVE (Negative); URINE KETONES NEGATIVE (Negative); URINE NITRITE-REFLEX NEGATIVE (Negative); URINE PROTEIN (DIPSTICK) NEGATIVE (Negative)
[2020-08-21 18:28] LABS: URINE LEUKOCYTES-REFLEX 3+ (Negative)
[2020-08-21 18:34] LABS: CASTS None Seen /LPF (None Seen); SQUAMOUS None Seen /LPF (0-3); URINE WBC-REFLEX >25 Many /HPF (0-5)
[2020-08-21 18:35] LABS: CRYSTALS None Seen /LPF (None Seen); URINE RBC 3-10 Few /HPF (NONE SEEN)
[2020-08-21 19:09] VITALS: BP 122/61
[2020-08-21 20:20] VITALS: BP 122/61
--- NOTE | 2020-08-22 01:47 | NUR ---
PATIENT WAS SITTING IN RECLINER IN DAYROOM WHEN GIVEN HER HALDOL 4MG/ATIVAN 1MG IM AT 0053. MANUAL HOLD ORDER IN PLACE AND INJECTION WAS GIVEN WITH THIS NURSE AND ONE ADDITIONAL STAFF NURSE TO HELP HOLD ARMS STILL FOR INJECTION INTO LEFT ARM. PATIENT YELLED AND TRIED TO HIT NURSES AND WAS COMBATIVE. PATIENT IS SLEEPING IN RECLINER IN DINING ROOM WITH CHAIR ALARM ON AT THIS TIME. RESPIRATIONS EVEN AND UNLABORED. PATIENT POSITIONED COMFORTABLY. NURSE POSITIONED IN DINING ROOM TO WATCH OVER PATIENTS IN THE ROOM. CONTINUING TO MONITOR. FOR SAFETY.
--- NOTE | 2020-08-22 04:32 | NUR ---
PATIENT SLEEPING SOUNDLY IN BED. PATIENT MOVED TO BED FROM RECLINER IN DINING ROOM BED AROUND 0200.
[2020-08-22 08:40] VITALS: BP 116/57
--- NOTE | 2020-08-22 08:49 | NUR ---
SALVADOR faxed updated to [facility] on 08/21/20.
--- NOTE | 2020-08-22 13:00 | NUR ---
SALVADOR and Dr. Rosenbaum met with patient's DPOA Dedra Muniz to discuss her concerns about patient's decline since being hospitalized. Dr. Rosenbaum spoke briefly with Dedra and scheduled a family meeting tomorrow at 3:30pm to address her concerns and discuss next steps for patient care. SW team will remain available.
--- NOTE | 2020-08-22 13:21 | NUR ---
RT Progress Note- Nimo has made little progress towards recreation goals this review period. Nimo has either been asleep, or uncooperative to attend groups. RT staff attempt to meet with Nimo 1;1 but she has not offered attention to do so. Will continue to encourage.
[2020-08-22 20:20] VITALS: BP 122/54
[2020-08-22 20:28] VITALS: BP 120/68; BP 122/54
--- NOTE | 2020-08-23 03:55 | NUR ---
PATIENT WAS SITTING UP IN UMAIR CHAIR WHEN ASSUMED CARE OF PATIENT AT 1900. SHE WAS CALM AND COOPERATIVE TILL ABOUT 2100 WHEN SHE BEGAN TRYING TO STAND UP FROM HER UMAIR CHAIR. SHE WAS SITTING ON CHAIR ALARM. REPEATED REDIRECTIONS AND REMINDERS TO SIT DOWN. WHEN THIS NURSE WAS ABLE TO GET ANOTHER STAFF MEMBER IN TO WATCH OTHER PATIENTS, THE PATIENT WAS TAKEN TO HER ROOM TO TOILET AND PLACE INTO BED. SHE STATES SHE WANTED TO LAY DOWN. SHE WAS FUSSY AND IRRITABLE. ONCE IN BED SHE SLEPT FOR AN HOUR AND THEN BEGAN YELLING OUT. SHE REFUSED TYLENOL WHEN OFFERED. SHE WAS IRRITABLE AND INDECISIVE OF IF SHE WANTED OUT OF BED OR TO GO TO BED. SHE WAS LOOKING FOR "MAZY". SHE WAS GIVEN OLANZAPINE PRN. WHEN SHE BECAME AGITATED AND DIDN'T WANT US TO GET HER UP OUT OF BED BUT THEN SHE DIDN'T WANT TO STAY IN BED EITHER. STAYED AND REPOSITIONED PATIENT. ABDOMEN SOFT AND NONTENDER. LUNGS CTA BUT DIMINISHED. HEART S1S2 PRESENT. SPOKE WITH PATIENT SOFTLY AND SHE CALMED. PATIENT SLEEPING AT THIS TIME. PATIENT TOOK SOME MEDS WHOLE WITH WATER AND SOME CRUSHED IN PUDDING. BED IN LOW POSITION AND BED ALARM IS ON. CONTINUING TO MONITOR. ROUTINE ROUNDS TO ASSESS STATUS AND SAFETY OF PATIENT.
[2020-08-23 09:13] VITALS: BP 122/93
--- NOTE | 2020-08-23 17:06 | NUR ---
0700 ASSUMED CARE OF PATIENT. PATIENT IN GERICHAIR FOR BREAKFAST, FEEDS SELF WITH MINIMAL HELP. PATIENT REFUSING MEDICATION WITH INCREASED AGITAION AND BACOMES COMBATIVE WITH TALKING TO PATIENT. PATIENT CALMS DOWN AFTER LEFT ALONE. AT TIMES YELLS OUT AND SCREAMS MAKING RANDOM STATESMENTS. ASSISTED TO BEDSIDE CAMMODE X2 ASSIST WITH COMBATIVNESS. INCREASE AGITAION NOTED WHEN PATIENT NEEDS TO USE BR. PATIENT SWINGS ARMS AND KICKING WITH CARES. 1500 PATIENT TAKES MEDICATION WITHOUT DIFFICULTY. ALERT & ORIENTED TO SELF. PATIENT ALLOWS DIRECTOR OF ORTHOPEDICS TO WASH FACE AND PATIENT CALM AND COOPERATIVE AT THAT TIME. 1530 PATIENT ASSISTED TO BEDSIDE CAMMODE WITH COMBATIVNESS. ASSISTED X2. PATIENT SITTING UP EATING DINNER FEEDING SELF. DENIES NEEDS
--- NOTE | 2020-08-23 17:32 | NUR ---
Kimberly from [facility] came to [facility] to complete an assessment with the Pt for hospice services. SALVADOR did fax clinical information to Kimberly at [phone]. [facility] has accepted the Pt.
--- NOTE | 2020-08-23 17:36 | NUR ---
SALVADOR and Dr. Ramires participated in a family meeting with Dedra and Tati. Medications and labs were reviewed. Dedra shared concerns about Pt's decline. It was confirmed that the Pt does have a UTI. Dedra expressed she felt Pt would do better in surroundings that she is familiar. Dedra expressed desire for Pt to discharge. SALVADOR will contact [facility] concerning discharge.
--- NOTE | 2020-08-23 17:49 | NUR ---
[facility] contacted [facility], , concerning discharge. SALVADOR spoke with the DON. They are willing to accept the Pt back on 08/24/2020. [facility] will provide transportation. The DON did ask that the Pt be sent with her perscriptions filled due to the facility's use of a mail in pharmacy and would not be able to get new orders quickly. SALVADOR will inform Dr. Ramires of this request. D/C scheduled for 08/24/2020 @1000.
[2020-08-23 19:30] VITALS: BP 100/50
--- NOTE | 2020-08-24 05:49 | NUR ---
08-23-20 CARE TRANSFERRED 1900 OBSERVED PT SITTING IN RECLINER IN DAY ROOM. LATER PT AAOX1, VSS, RR EVEN AND NONLABORED ON RA. PT PRESENTS PLESANT, CALM AND COOPERATIVE. DURING MEDICATION ADMIN PT HAS NO DIFFICULTIES. ZERO S/S OF ACUTE DISTRESS NOTED, PT WILL CONTINUE TO BE MONITOR PER [facility].
[2020-08-24] MEDS ORDERED: Cephalexin 500 MG Ca PO (09:21)
[2020-08-24] MEDS ORDERED: LEXAPRO 10 MG T10 MG PO (09:22)
[2020-08-24] MEDS ORDERED: TRAZODONE HCL50 MG PO (09:23)
[2020-08-24] MEDS ORDERED: SEROQUEL 50 MG50 MG PO (09:24)
[2020-08-24] MEDS ORDERED: CALTRATE-600 W1 EACH PO (09:24)
[2020-08-24 10:24] VITALS: BP 133/59
--- NOTE | 2020-08-24 10:44 | NUR ---
0700 ASSUMED CARE OF PATIENT, PATIENT IN BED AT THAT TIME. PATIENT TO DAYROOM VIA GERICHAIR. PATIENT FEEDS SELF EATING 50% OF MEAL THIS AM. MEDICATION TAKEN WHOLE WITHOUT DIFFICULTY. ALERT AND ORIENTED X1 PERSON ONLY. LS CLEAR, BS ACTIVE, ABD SOFT. ASSISTED X2 WITH CARES. PATIENT CHANGED AND READY FOR DISCHARGE. FAMILY MEMBER HERE TO ASSIST WITH DC. TRANSPORT FROM FACILITY HERE. PATIENT HAPPY AND CLAPPING THAT SHE IS LEAVING. DC VIA WC ACCOMPANIED BY STAFF, FACILITY STAFF AND FAMILY MEMBER TO VEHICLE. FAMILY MEMBER TO OUT PT PHARMACY TO HORSE SHOER MEDICATIONS. OTHER MED FAXED TO [facility] PER FACILITIES REQUEST. DC @ 1000 AM
--- NOTE | 2020-08-26 21:00 | D ---
[facility] [place] [address] DISCHARGE SUMMARY Name: SUZY LAWRENCE Sha Room #: 519A-A [facility] IN M.R.#: [id number] Admission: 08/08/20 Attend Phys: Carlos Rosenbaum DO Discharge: 08/24/20 Date of : 40 Report #: [id number] THIS REPORT FOR: cc: Jean Campos MD, Ralph R. MD Kerstein, Andrew H. DO ~ DOC #: [id number] CARLOS Rosenbaum DO DATE OF SERVICE: 08/24/2020 INPATIENT PSYCHIATRY DISCHARGE SUMMARY ATTENDING PSYCHIATRIST: Carlos Rosenbaum DO. OPERATIONS CONSULTANT: At time of discharge is Alina Brooks MD. DISCHARGE DIAGNOSES: Major neurocognitive disorder, likely due to Alzheimer's disease with behavioral disturbance quite advanced. MEDICAL COMORBIDITIES: Are as follows: Unspecified depression, improved; bhqrflyr-ue-giolwl protein-calorie malnutrition with BMI of 14.7; gastroesophageal reflux disease; gait disturbance; failure to thrive. The patient is being discharged to [facility] for memory care as well as will now be getting hospice care there. Diet is regular, Ensure with meals. The patient's gait is quite impaired and requires at least moderate assist with ambulation. DISCHARGE MEDICATIONS: The patient's discharge medications are as follows: Depakote sprinkles 500 mg oral twice daily, docusate sodium 100 mg oral twice daily, docusate for bowel motility, meloxicam 15 mg oral daily for arthritic pain, multivitamin oral daily for supplement, omeprazole 20 mg oral daily in a.m. before breakfast for GERD, pravastatin 40 mg oral at bedtime. Actually, I meant to discontinue the pravastatin since she is going on hospice, but we will defer that judgment to the fpc provider. Cephalexin 500 mg oral twice daily for 7 more days for UTI, Lexapro 10 mg oral daily for depression, trazodone 25 mg oral at bedtime p.r.n. for sleep, Seroquel 50 mg oral 3 times a day for psychosis and impulse control, calcium carbonate, vitamin D3, Caltrate 600IU with Calcium 1000 mg oral daily in the morning. LABORATORY DATA: Notable laboratories from this admission, hematology back on 08/08/2020, H and H 11.1 and 33.1, white count 6.4, platelet count 213. Sodium 140, potassium 3.5, chloride 103, bicarbonate 29, anion gap 8, BUN 16, creatinine 0.9, estimated GFR 69, glucose 99. Hemoglobin A1c 5.5, calcium 9.0, total bilirubin 0.4, AST 18, ALT 18, alkaline phosphatase 68. Ammonia 27, total protein 5.6, albumin 3.2. Triglycerides 89. Cholesterol 175, LDL 76, HDL 82. [address] [address] DISCHARGE SUMMARY Name: SUZY LAWRENCE Room #: 519A-A DIS IN M.R.#: [id number] Admission: 08/08/20 Attend Phys: Carlos Rosenbaum DO Discharge: 08/24/20 Date of : 40 Report #: [id number] TSH normal at 1.251. Urinalysis showed 3+ blood, 3+ leukocyte esterase, leukocytes, moderate bacteria. Urine culture did grow on admission ESBL E. coli. Toxicology, Depakote level on 08/14/2020 was 65. REASON FOR ADMISSION: An 80-year-old female sent from [facility] for concerns of suicidal ideation and behavior. The patient's DPOA, Dedra, has been making decisions for history of Alzheimer's dementia, has been crying a lot, told the staff member she wanted to kill herself by running into traffic to be hit by a car. HOSPITAL COURSE: The patient was admitted to the geriatric psychiatry unit. We had a fairly difficult course getting improvement with this patient. I tried to treat her with Depakote alone. We still had significant mood lability resistance with care. I added Seroquel. We also had some issues with some breakthrough sundowning. She would tend to get over sedated. There were several visits by her DPOA, Dedra and friend, Tati. Near the end of the admission, the DPOA wished her to return to nursing facility, and to my surprise, [facility] was willing to take her back as is. PHYSICAL EXAMINATION: VITAL SIGNS: On day of discharge, temperature 36.4, pulse 75, respirations 18, BP 133/50, O2 sat 100%. MUSCULOSKELETAL: Frail ill appearing, malnourished, in Gala chair. MENTAL STATUS EXAMINATION: This is a well-developed, ill-appearing female appearing older than stated age. Attention fair. Concentration impaired. Speech: Has verbal fluency, normal rate. Thought process: Linear, limited. Thought content: Generally poverty of thought. Mood and affect constricted, constircted. Denied SI, HI. Denied auditory, visual, or tactile hallucinations. Memory not impaired, not formally tested. Insight is impaired, judgment is impaired. Fund of knowledge well below average. Prognosis for this patient is guarded to poor given her advanced dementia. Low BMI. Poor response to psychiatric medications on this admission. Hospice script was given. The patient should be a NO CODE. CARLOS RosenbaumDO DENNEY/JOSE/GOD [facility] [address] [place] [address] DISCHARGE SUMMARY Name: SUZY LAWRENCE Room #: 519A-A [facility] IN M.R.#: [id number] Admission: 08/08/20 Attend Phys: Carlos Rosenbaum DO Discharge: 08/24/20 Date of : 40 Report #: [id number] <ELECTRONICALLY SIGNED> By: Carlos Rosenbaum DO 08/26/20 2100 [id number] Carlos Rosenbaum DO /nt
== END 2020-08-24 10:00 | disposition hospice, home (50) | DRG 56 ==
LOC: SBH
PROVIDERS: ADMIT Psychiatry & Neurology Psychiatry; ATTEND Psychiatry & Neurology Psychiatry
DX: G30.9 Alzheimer's disease, unspecified (principal); F05 Delirium due to known physiological condition; E43 Unspecified severe protein-calorie malnutrition; F01.51 Vascular dementia, unspecified severity, with behavioral disturbance; F02.81 Dementia in other diseases classified elsewhere, unspecified severity, with behavioral disturbance; Z68.1 Body mass index [BMI] 19.9 or less, adult; R45.851 Suicidal ideations; K21.9 Gastro-esophageal reflux disease without esophagitis; R62.7 Adult failure to thrive; F32.9 Major depressive disorder, single episode, unspecified; E78.5 Hyperlipidemia, unspecified; F41.9 Anxiety disorder, unspecified; Z88.5 Allergy status to narcotic agent
CPT/HCPCS: 10880